=== PATIENT | female | born 1970 | race Caucasian/White ===

== ENCOUNTER → 2020-06-19 09:30 | Outpatient (CLI) | payer OTHER, SELFPAY ==
--- NOTE | ~2020-06-19 | MM_ITS ---
EXAMINATION: MM screening [facility] BI w zane HISTORY: Screening mammogram TECHNIQUE: Craniocaudal and mediolateral oblique 3-D tomosynthesis images were obtained and synthetic 2-D images were generated. CAD analysis was submitted and interpreted. COMPARISON: 01/17/2019, 01/01/2018 BREAST PARENCHYMAL COMPOSITION: There are scattered areas of fibroglandular density. FINDINGS: There is no evidence of suspicious mass, calcification, or architectural distortion to sugg est malignancy in either breast. There has been no suspicious interval change. IMPRESSION: 1. No mammographic evidence of malignancy. 2. Recommend routine screening mammography in one year. BI-RADS Category 1: Negative Reviewed, dictated and finalized at location A.
== END ==
PROVIDERS: PCP Emergency Medicine; Visit Provider Obstetrics & Gynecology
DX: Z12.31 Encounter for screening mammogram for malignant neoplasm of breast (principal)
CPT/HCPCS: 77063; 77067

== ENCOUNTER → 2021-06-14 12:29 | Outpatient (CLI) | payer OTHER, SELFPAY ==
--- NOTE | ~2021-06-14 | MR_ITS ---
EXAMINATION: MR foot LT wo con DATE: 06/14/2021 13:16 INDICATION: Spontaneous rupture of the flexor tendon of the left foot with medial left hindfoot pain and swelling TECHNIQUE: Magnetic resonance imaging (MRI) of the left ankle was performed without intravenous contr ast. Sequences included sagittal, coronal, and axial proton-density weighted fast spin echo without a nd with fat saturation. COMPARISON: None. FINDINGS: Medial ankle ligaments: Loss of the normally sharply defined striated pattern of the deep deltoid ligament with small heterot opic ossicle along the ligament fibers consistent with sequela of chronic sprain. There is prominent thickening of the superficial deltoid ligament as well as of the superomedial component of the spring ligament complex consistent with additional scarring related to chronic sprain. Lateral ankle ligaments: The anterior and posterior inferior tibiofibular ligaments are normal. The anterior talofibular, calc aneofibular and posterior talofibular ligaments are normal. Tendons: Achilles tendon is normal. The peroneus longus and brevis tendons are normal. The tibialis anterior a nd extensor hallucis longus and extensor digitorum longus tendons are normal. The flexor digitorum lo ngus and flexor hallucis longus tendons are normal. Severe tibialis posterior tendinopathy with mild surrounding tenosynovitis. There is a longitudinal split tearing of the tendon as well as a high-grad e partial if not complete tear of the tendon. Approximately two thirds of the cross-sectional area of the tendon appears torn near the level of the tibiotalar joint line. Following the intact portion of the tendon more proximally however suggests this may also be torn proximally 1.5 cm proximal to the level of the joint line. Plantar fascia: Chronic mild plantar enthesopathy with mild thickening of the proximal central component of the plant ar aponeurosis and small enthesophyte at its calcaneal origin. No surrounding soft tissue or marrow e rey to suggest acute plantar fasciitis. Bones/other: Bone alignment is normal. Normal marrow signal with no fracture or pathologic marrow replacing proces s. Polyarticular osteoarthritis, mild to moderate at the talonavicular joint and mild at the ankle an d remaining joints in the mid and hindfoot. Fluid: Physiologic amount fluid in the joint spaces. There is moderate-sized ganglion cyst measuring up to 5 mm in thickness and extending 2.8 cm anteroposteriorly and 2.7 cm medial collateral along the dorsol ateral aspect of the talonavicular joint. IMPRESSION: 1. Mild tibialis tenosynovitis with severe tendinopathy, longitudinal split tearing and high-grade pa rtial if not complete transverse tear of the tibialis posterior tendon near the level of the tibiotal ar joint line. 2. Prominent likely chronic scarring of the deep and superficial deltoid ligaments and superomedial c omponent of the spring ligament complex cyst with sequela of chronic sprain. 3. 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 4. Moderate-sized ganglion cyst along the dorsal aspect of the talonavicular joint. Reviewed, dictated and finalized at location A. IMPRESSION: 1. Mild tibialis tenosynovitis with severe tendinopathy, longitudinal split tea ring and high-grade partial if not complete transverse tear of the tibialis pos terior tendon near the level of the tibiotalar joint line. 2. Prominent likely chronic scarring of the deep and superficial deltoid ligame nts and superomedial component of the spring ligament complex cyst with sequela of chronic sprain. 3. Polyarticular osteoarthritis at the left ankle, mid and hindfoot, mild
== END ==
PROVIDERS: Visit Provider Podiatrist Foot & Ankle Surgery
DX: M66.372 Spontaneous rupture of flexor tendons, left ankle and foot (principal); M19.072 Primary osteoarthritis, left ankle and foot
CPT/HCPCS: 73718

== ENCOUNTER → 2022-07-24 16:31 | Outpatient (CLI) | payer OTHER, MEDICAID, SELFPAY ==
--- NOTE | ~2022-07-24 | MM_ITS ---
EXAMINATION: MM screening [facility] BI w zane HISTORY: Screening mammogram TECHNIQUE: Craniocaudal and mediolateral oblique 3-D tomosynthesis images were obtained and synthetic 2-D images were generated. CAD analysis was submitted and interpreted. COMPARISON: 06/19/2020, 01/17/2019, 01/01/2018 bilateral screening mammogram examinations BREAST PARENCHYMAL COMPOSITION: The breasts are almost entirely fatty. FINDINGS: There is no evidence of suspicious mass, calcification, or architectural distortion to sugg est malignancy in either breast. There has been no suspicious interval change. IMPRESSION: 1. No mammographic evidence of malignancy. 2. Recommend routine screening mammography in one year. BI-RADS Category 1: Negative Reviewed, dictated and finalized at location A.
== END ==
PROVIDERS: PCP Student in an Organized Health Care Education/Training Program; Visit Provider Obstetrics & Gynecology
DX: Z12.31 Encounter for screening mammogram for malignant neoplasm of breast (principal)
CPT/HCPCS: 77063; 77067

== ENCOUNTER 2024-08-14 12:03 | Outpatient (CLI) | payer OTHER, SELFPAY ==
--- NOTE | ~2024-08-14 | MM_ITS ---
EXAMINATION: MM screening [facility] BI w zane HISTORY: Screening TECHNIQUE: Craniocaudal and mediolateral oblique 3-D tomosynthesis images were obtained and synthetic 2-D images were generated. CAD analysis was submitted and interpreted. COMPARISON: Comparison to multiple prior studies sequentially, with oldest reviewed study dated 03/02. BREAST PARENCHYMAL COMPOSITION: Not Dense: The breasts are almost entirely fatty. FINDINGS: There is no evidence of suspicious mass, calcification, or architectural distortion to sugg est malignancy in either breast. There has been no suspicious interval change. IMPRESSION: 1. No mammographic evidence of malignancy. 2. Recommend routine screening mammography in one year. BI-RADS Category 1: Negative Reviewed, dictated and finalized at location A.
== END 2024-08-14 12:04 | disposition home or self-care (01) ==
LOC: MICIMG 12:04
PROVIDERS: PCP Student in an Organized Health Care Education/Training Program; Visit Provider Obstetrics & Gynecology
DX: Z12.31 Encounter for screening mammogram for malignant neoplasm of breast (principal)
CPT/HCPCS: 77063; 77067

== ENCOUNTER 2024-11-14 16:34 | Emergency (ER) | payer OTHER, SELFPAY ==
--- OUTSIDE RECORDS SUMMARY | 2024-11-14 16:36 | XMS_ITS | Clinical Summary ---
Author Organization [facility] Address [facility] [place] [address] Care Team Providers Care Conservation Biology Professor Name Role Phone Giselle Landaverde MD Primary Care Provider [phone] Allergies Active Allergy Reactions Criticality Noted Date Comments Erythromycin Diarrhea Low 12/17/2009 Latex Itching Medium 07/15/2014 Penicillins Diarrhea Medium 07/15/2014 Medications metFORMIN 1000 MG tablet Take 1 tablet (1,000 mg total) by mouth 2 (two) times daily. 0 9 Active cetirizine 10 MG chewable tablet Chew 1 tablet (10 mg total) by mouth daily. Active Dapagliflozin Propanediol 10 MG Tab Take 1 tablet (10 mg total) by mouth daily. 2 Active Apple Cider Vinegar 188 MG Cap Active clotrimazole-beta methasone (LOTRISONE) cream APPLY TO THE AFFECTED AREA THREE TIMES DAILY 3 Active losartan (COZAAR) 100 MG tabletIndications :Essential hypertension Take 1 tablet (100 mg total) by mouth daily. 90 tablet 1 5 Active OZEMPIC 2 mg/dose injection (PEN) Inject 2 mg into the skin once a week. Active hydroCHLOROthiazi de (MICROZIDE) 12.5 MG tabletIndications :Essential hypertension Take 2 tablets (25 mg total) by mouth daily. 180 tablet 5 Active cyclobenzaprine (FLEXERIL) 5 MG tabletIndications :Spasm of thoracic back muscle,Acute left-sided thoracic back pain Take 1 tablet (5 mg total) by mouth 2 (two) times daily as needed for Muscle Spasms. 10 tablet 5 11/11/19 25 Active Problems Problem Noted Date Diagnosed Date Microalbuminuria 2020 Overview (10/18/2020): Last Assessment & Plan: Probably related to insulin resistance / prediabetes On Losartan Insulin resistance syndrome 2020 Overview (04/26/2021): Last Assessment & Plan: Hba1c 6.5 today Diet and exercise Continue Farxiga, Metformin Last Assessment & Plan: Continue working on diet and exercise Continue with Farxiga and Metformin Vitamin D insufficiency 10/17/2017 PCOS (polycystic ovarian syndrome) 06/21/2017 Overview (09/25/2018): Last Assessment & Plan: A1c 6.7. Continue metformin. Focus on diet and exercise. Iron deficiency anemia 07/10/2016 Microcytic anemia 07/06/2016 Orthopnea 06/30/2016 Daytime hypersomnolence 06/26/2016 Medication management 06/26/2016 Assessment & Plan (06/25/2018 6:14 PM CDT): Recheck routine labs in 6 months. Hernia, abdominal 07/15/2014 Essential hypertension 07/15/2014 Assessment & Plan (06/25/2018 6:06 PM CDT): Borderline controlled. 1) Medication: continue current medication regimen unchanged, encouraged home monitoring, call for persistent elevations at or above 130/85. 2) Dietary sodium restriction - DASH diet handout 3) Regular aerobic exercise 4) Recheck in 6 months, sooner should new symptoms or problems arise. Pure hypertriglyceridemia 08/16/2013 Overview (06/21/2018): Overview: PURE HYPERGLYCERIDEMIA Assessment & Plan (06/25/2018 6:13 PM CDT): Check lipid panel, last remote, but elevated per patient. Morbid obesity with BMI of 50.0-59.9, adult 09/30 Overview (06/21/2018): Overview: MORBID OBESITY Last Assessment & Plan: Diet and exercise were discussed. 1200 Calorie diet advised 45-60 min aerobic / resistance exercise most days of the week recommended. 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 Will treat with azithromycin and codeine containing cough syrup. Type 2 diabetes mellitus wit hout complication, without long-term current use of insulin ([facility]) 06/25/2018 11/11/2021 Assessment & Plan (06/25/2018 6:16 PM CDT): Hemoglobin A1c indicates patient now with diabetes. Continue current treatment. Recheck in 6 months. Acute bronchitis, unspecified organism 06/25/2018 09/25/2018 Assessment & Plan (06/25/2018 6:24 PM CDT): See upper respiratory tract infection, above. Plantar wart 10/17/2017 10/05/2019 Skin lesion of neck 04/04/2017 12/25/19 19 BMI 50.0-59.9, adult 06/26/2016 021 Overview (06/21/2018): Transitioned From: Obesity Assessment & Plan (06/25/2018 6:10 PM CDT): Patient continues to work toward weight loss, with dietary changes and increased exercise. Briefly reviewed considerations for bariatric surgery. Patient concerned as a number of people she knows who had gained their weight back and some had ongoing gastrointestinal issues. Continue to monitor and encourage positive steps with lifestyle change. Encounters Date Type Department Care Team Description 11/14/2024 Telephone [facility] Family & Internal [address] [phone] Giselle Landaverde MD Appointment Request 10/31/2024 11:00 AM CDT Office Visit [facility] Family Internal [address] [phone] Hai Garcia PA Back Pain (Mid back pain (dull and sometimes sharp stabbing) started Sunday /Took naproxen and ibuprofen not helping) 10/31/2024 Travel 09/25/2024 1:00 PM CDT Office Visit [facility] Internal [address] [phone] Per Mercedes MD Physical 09/25/2024 Travel 09/15/2024 Orders Only [facility] Internal [address] [phone] Kimberly Bowens from Last 3 Months Immunizations Immunization Administration Dates Next Due Dtap (Generic) 01/02/2019 Influenza (Generic) 12/23/2009,12/23/2009 Tdap (Generic) 01/02/2019,01/02/2019,01/01/2019 Family History Medical History Relation Comments Cancer Mother Diabetes Mother Hypertension Mother Relation Status Comments Father Mother Alive Social History Tobacco Use Types Packs/Day Years Used Date Smoking Tobacco: Never Smokeless Tobacco: Never Tobacco Cessation:Counseling Given: No Alcohol Use Standard Drinks/Week Comments Yes 0 (1 standard drink = 0.6 oz pur e alcohol) socailly once a month AUDIT-C Answer Date Recorded Frequency of Alcohol Consumption Never 06/21/2018 Average Number of Drinks Not on file 019 Frequency of Binge Drinking Not on file 06/01 PHQ-2 Answer Date Recorded Patient Health Questionnaire-2 Score 0 09/25/2024 Comments No Sex and Gender Information Value Date Recorded Sex Assigned at Female 11/03/2024 7:11 AM CDT Legal Sex Female 8:18 PM CDT Gender Identity Not on file Sexual Orientation Not on file Last Filed Vital Signs Vital Sign Reading Time Taken Comments Blood Pressure 138/80 10/31/2024 11:10 AM CDT manual Pulse 64 10/31/2024 11:04 AM CDT Temperature 36.4 C (97.6 F) 10/31/2024 11:04 AM CDT Respiratory Rate 20 10/31/2024 11:0 4 AM CDT Oxygen Saturation 97% 10/31/2024 11: 04 AM CDT Inhaled Oxygen Concentration - - Weight 137.5 kg (303 lb 3.2 oz) 025 11:04 AM CDT Height 167.6 cm (5' 6) 10/31/2024 11:0 4 AM CDT Body Mass Index 48.94 10/31/2024 11:04 AM CDT Plan of Treatment Upcoming Encounters Date Type Department Care Team (Late st Contact Info) Description 01/30/2025 4:00 PM CDT Office Visit [facility] Family & Internal Medicine - [address] [phone] Gsielle Landaverde [place] [id number] [place] [address]. [address] [place] [address] Health Maintenance Due Date Last Done Comments Cervical Cancer Screening Pap Smear (Age 30 to 64) Every 3 Years 1971 Hepatitis C 1989 Hepatitis B Vaccines (1 of 3 - 19+ 3-dose series) 1990 Cervical Cancer Screening Pap with HPV Testing (Age 30 to 64) Every 5 Years 2001 Pneumococcal Vaccine: 50+ Years (1 of 1 - PCV) 2021 Zoster Vaccines (1 of 2) 2021 COVID-19 Vaccine (1 - 2023- season) 2025 Postponed from 12/02/2023 (Patient Refused) Annual Physical 09/25/2025 09/25/2024, 04/26/2021 Colorectal Cancer Screening FIT-DNA (3 Years) 10/09/2026 10/10/2023, 10/10/2023 Mammogram Screening 09/06/2028 06/19/2020 Postpone d from 08/01/2023 (Going to Outside Clinic) DTaP, Tdap and Td Vaccines (5 - Td or Tdap) 01/02/2029 01/02/2019, 01/02/2019, 01/02/2019, Additional history exists Cervical Cancer Screening with HPV 08/28/2030 Postponed from 2001 (Going to Outside Clinic) PHQ-2 (Physician [place]) Completed 09/25/2024 Meningococcal B Vaccine Aged Out No l onger eligible based on patient's age to complete this topic Meningococcal Vaccine Aged Out No kushal rachel eligible based on patient's age to complete this topic RSV Immunizations Under 20 Months Aged Out No longer eligible based on patient's age to complete this topic Procedures Procedure Name Priority Date/Time Associated Diagnosis Comments COLOGUARD (EXACT SCIENCE) Routine 10/10/2023 4:00 PM CDT Colon cancer screening MAMMOGRAM GENERIC (SCAN ORDER) 06/19/2020 from Last 3 Months or Most Recently Relevant to Health Maintenance Results * COLOGUARD (EXACT SCIENCE) (10/10/2023 4:00 PM CDT) COLOGUARD RESULT Negative Negative [employer] [facility] (CLIA #:[id number]) Comment: NEGATIVE TEST RESULT. A negative Cologuard result indicates a low likelihood that a colorectal cancer (CRC) or advanced adenoma (adenomatous polyps with more advanced pre-malignant features) is present. The chance that a person with a negative Cologuard test has a colorectal cancer is less than 1 in 1500 (negative predictive value >99.9%) or has an advanced adenoma is less than 5.3% (negative predictive value 94.7%). These data are based on a prospective cross-sectional study of 10,000 individuals at average risk for colorectal cancer who were screened with both Cologuard and colonoscopy. (Kayleen Vaughn al, N Engl J Med 2014;370(14):2185-9063) The normal value (reference range) for this assay is negative. COLOGUARD RE-SCREENING RECOMMENDATION: Periodic colorectal cancer screening is an important part of preventive healthcare for asymptomatic individuals at average risk for colorectal cancer. Following a negative Cologuard result, the [place] [employer] and U.S. Multi-Society Task Force screening guidelines recommend a Cologuard re-screening interval of 3 years. References: [place] [employer] Guideline for Colorectal Cancer Screening: https://www.cancer.org/cancer/sircp-czrmvd-aszvoi/ptuojrhoa-wqglxpewb-lpdpivl/ac s-rec ommendations.html.; Marko DK, Leda THOMAS, Vidhi LOPEZ, Colorectal Cancer Screening: Recommendations for Physicians and Patients from the U.S. Multi-Society Task Force on Colorectal Cancer Screening , Am J Gastroenterology 2017; 112:7234-3709. TEST DESCRIPTION: Composite algorithmic analysis of stool DNA-biomarkers with hemoglobin immunoassay. Quantitative values of individual biomarkers are not reportable and are not associated with individual biomarker result reference ranges. Cologuard is intended for colorectal cancer screening of adults of either sex, 45 years or older, who are at average-risk for colorectal cancer (CRC). Cologuard has been approved for use by the U.S. FDA. The performance of Cologuard was established in a cross sectional study of average-risk adults aged 50-84. Cologuard performance in patients ages 45 to 49 years was estimated by sub-group analysis of near-age groups. Colonoscopies performed for a positive result may find as the most clinically significant lesion: colorectal cancer [4.0%], advanced adenoma (including sessile serrated polyps greater than or equal to 1cm diameter) [20%] or non- advanced adenoma [31%]; or no colorectal neoplasia [45%]. These estimates are derived from a prospective cross-sectional screening study of 10,000 individuals at average risk for colorectal cancer who were screened with both Cologuard and colonoscopy. (Kayleen Vaughn al, N Engl J Med 2014;370(14):9977-8191.) Cologuard may produce a false negative or false positive result (no colorectal cancer or precancerous polyp present at colonoscopy follow up). A negative Cologuard test result does not guarantee the absence of CRC or advanced adenoma (pre-cancer). The current Cologuard screening interval is every 3 years. ([place] [employer] Society and U.S. Multi-Society Task Force). Cologuard performance data in a 10,000 patient pivotal study using colonoscopy as the reference method can be accessed at the following location: www.exactlabs.com/results. Additional description of the Cologuard test process, warnings and precautions can be found at www.cologuard.com. STOOL STOOL SPECIMEN / Unknown 10/10/2023 4:00 PM CDT 10/11/2023 9:42 AM CDT Giselle Landaverde MD BODY FLUIDS AND STOOLS ORDERAB LES Final Result [facility] ([employer] [address] [facility]) [address] [place] [address], [employer] (CLIA #:[id number]) [address] [place] [address] * MAMMOGRAM GENERIC (06/19/2020) Anatomical Region Laterality Modality Other 06/19/2020 Narrative 06/19/2020 Ordered by an unspecified provider. us Documents Scanned SCANNING Final Result from Last 3 Months or Most Recently Relevant to Health Maintenance [place] [address] [facility] Care Teams Conservation Biology Professor Relationship Specialty Start [place] [address] [place] [address] PCP - General FAMILY PRACTICE 08/23/21
--- OUTSIDE RECORDS SUMMARY | 2024-11-14 16:36 | XMS_ITS | Clinical Summary ---
Author Organization [facility] [employer] Address [address] [place] [address] Care Team Providers Care Cloth Shrinking Machine Operator Name Role Phone Unavailable Primary Care Provider Unavailabl e Source Comments [facility] [employer],non-owned Affiliates and Associated Physician Practices is amultiple site organization consisting of ambulatory clinics and hospital sitesin [place], [place]. This disclosure is being madepursuant to the Care Everywhere program and may not contain all information available regarding this patient. Last updated 17.[facility] [employer] Allergies Active Allergy Reactions Criticality Noted Date Comments Erythromycin Diarrhea 12/17/2009 Latex Itching 12/17/2009 Medications * Be aware that medications may not be up to date on this document. Alwaysverify current medications with the patient. metformin CR osmotic 24hr (FORTAMET) 1000 MG (OSM) tablet Take 1,000 mg by mouth 2 times daily. 0 Active valsartan-hydro chlorothiazide (DIOVAN HCT) 320-12.5 MG tablet Take 1 Tab by mouth daily. Instructed to take AM of surgery Active trazodone (DESYREL) 50 MG tablet Take 25 mg by mouth at bedtime. Active citalopram (CELEXA) 10 MG tablet Take 10 mg by mouth daily. Active Cholecalciferol (VITAMIN D) 1000 UNIT capsule Take 1,000 Units by mouth daily. Active vitamin B-12 (CYANOCOBALAMIN ) 1000 MCG tablet Take 1,000 mcg by mouth daily. Active hydrocodone-paola taminophen (NORCO) 5-325 MG tablet Take 1 Tab by mouth every 4 hours as needed for Pain. 30 Tab 0 0 Active cephALEXin (KEFLEX) 500 MG capsule Take 500 mg by mouth 4 times daily. Active Active Problems No known active problems Immunizations Immunization Administration Dates Next Due INFLUENZA VACCINE 12/23/2009 Social History Tobacco Use Types Packs/Day Years Used Date Smoking Tobacco: Former Cigarettes Q uit: 04/02/2003 Comments:social only Alcohol Use Standard Drinks/Week Comments No 0 (1 standard drink = 0.6 oz pur e alcohol) Comments No Sex and Gender Information Value Date Recorded Sex Assigned at Not on file Legal Sex Female 9:08 AM POLE CLASSIFIER Gender Identity Not on file Sexual Orientation Not on file Last Filed Vital Signs Vital Sign Reading Time Taken Comments Blood Pressure 131/57 01/01/2010 2:42 PM CDT Pulse 62 01/01/2010 2:42 PM CDT Temperature 36.8 C (98.2 F) 01/01/2010 2:42 PM CDT Respiratory Rate 18 01/01/2010 2:42 PM CDT Oxygen Saturation 99% 01/01/2010 2:42 PM CDT Inhaled Oxygen Concentration - - Weight 160.6 kg (354 lb) 01/01/2010 2:42 PM CDT Height 177.8 cm (5' 10) 01/01/2010 2:42 PM CDT Body Mass Index 50.79 01/01/2010 2:42 PM CDT Plan of Treatment Health Maintenance Due Date Last Done Comments COLOGUARD (AGES 45-75) - COL ON CA SCREENING 1971 COLON MONITORING 1971 COLONOSCOPY - COLON CA SCREENING 1971 CT COLONOGRAPHY - COLON CA SCREENING 1971 Colorectal Cancer Screening 1971 FIT - COLON CA SCREENING 1971 FLEX SIG - COLON CA SCREENING 1971 LIPID TESTING 1971 MAMMOGRAM 1971 HIV SCREENING 1986 HEPATITIS C SCREENING 05/15/1989 DTAP/TDAP/TD VACCINES (1 - Tdap) 1990 HEPATITIS B VACCINE (1 of 3 - 19+ 3-dose series) 1990 PNEUMOCOCCAL VACCINE 50+ (1 of 1 - PCV) 2021 ZOSTER VACCINE (1 of 2) 2021 COVID-19 VACCINE (1 - 2023-2 5 season) 2023 DEPRESSION SCREENING 04/02/2024 INFLUENZA VACCINE (#1) 2024 12/23/2009 HIB VACCINE Aged Out No longer eligi ble based on patient's age to complete this topic HPV VACCINE Aged Out No longer eligi ble based on patient's age to complete this topic MENINGOCOCCAL (Group B) VACC INE SHARED DECISION-MAKING Aged Out No longer eligibl e based on patient's age to complete this topic MENINGOCOCCAL GROUPS A/C/Y/W VACCINE Aged Out No longer eligible b ased on patient's age to complete this topic Advance Directives * Full Code (Latest Code Status on File) Date Activated Date Inactivated Comments 12/22/2009 4:53 PM 12/27/2009 10:57 PM
--- OUTSIDE RECORDS SUMMARY | 2024-11-14 16:36 | XMS_ITS | Clinical Summary ---
Author Organization [facility] [place] [address] Address [address] [place] [address] Care Team Providers Care Customs House Broker Name Role Phone Giselle Landaverde MD Primary Care Provider [phone] Allergies Active Allergy Reactions Criticality Noted Date Comments Erythromycin Diarrhea Low 12/17/2009 Latex Itching,Unknown Medium 12/17/2009 Penicillins Unknown,Diarrhea Medium 07/15/2014 Medications cetirizine (ZyrTEC) 10 mg tablet Take 1 tablet (10 mg total) by mouth daily Active losartan (COZAAR) 100 mg tablet 8 Active clotrimazole-bet amethasone (LOTRISONE) cream Apply as directed 9 Active UNABLE TO FIND Lipo BC Activ e UNABLE TO FIND Med Name: Nutri Lean Active hydroCHLOROthiaz bunny (HYDRODIURIL) 25 mg tabletIndication s:hypertension Take 1 tablet (25 mg total) by mouth daily Active hydroCHLOROthiaz bunny 12.5 mg tablet 4 Active semaglutide (OZEMPIC) 2 mg/dose (8 mg/3 mL) pen injector injection Inject 2 mg under the skin every 7 days 3 mL 11 5 Active metFORMIN (GLUCOPHAGE) 1,000 mg tabletIndication s:Insulin resistance,PCOS (polycystic ovarian syndrome) Take 1 tablet (1,000 mg total) by mouth 2 (two) times a day with meals 180 tablet 3 5 05/22/19 26 Active dapagliflozin propanediol (Farxiga) 10 mg tabletIndication s:PCOS (polycystic ovarian syndrome) Take 1 tablet (10 mg total) by mouth daily 90 tablet 3 5 Active Active Problems Problem Noted Date Diagnosed Date Insulin resistance 2020 Assessment & Plan (08/21/2023 2:12 PM CDT): See PCOS above. Assessment & Plan (03/01/2023 3:55 PM DIRECTOR OF TESTING): See PCOS above. Assessment & Plan (10/18/2021 3:37 PM CDT): Continue watching diet and exercise Continue Farxiga and Metformin Restart Ozempic, 1 mg weekly Assessment & Plan (06/02/2021 12:50 PM DIRECTOR OF TESTING): Continue working on diet and exercise Continue with Farxiga and Metformin Start Ozempic SE were discussed Assessment & Plan (11/04/2020 12:19 PM CDT): Continue working on diet and exercise Continue with Farxiga and Metformin Assessment & Plan (2020 1:58 PM DIRECTOR OF TESTING): Hba1c 6.5 today Diet and exercise Continue Farxiga, Metformin Microalbuminuria 2020 Assessment & Plan (2020 1:58 PM DIRECTOR OF TESTING): Probably related to insulin resistance / prediabetes On Losartan Insulin resistance syndrome 2020 Overview (05/22/2024): Last Assessment & Plan: Hba1c 6.5 today Diet and exercise Continue Farxiga, Metformin Last Assessment & Plan: Continue working on diet and exercise Continue with Farxiga and Metformin Vitamin D insufficiency 10/17/2017 BMI 50.0-59.9, adult 06/21/2017 Assessment & Plan (2020 1:58 PM DIRECTOR OF TESTING): Diet and exercise were discussed. 1200 Calorie diet advised 45-60 min aerobic / resistance exercise most days of the week recommended. Assessment & Plan (12/03/2019 4:19 PM CDT): Importance of following diet and exercising discussed. Assessment & Plan (09/20/2018 11:46 AM CDT): Encouraged to focus on calorie reduction, go back to exercise. Continue to consider bariatric surgery PCOS (polycystic ovarian syndrome) 06/21/2017 Assessment & Plan (08/21/2023 2:19 PM CDT): Chronic problem. Has been doing well on diet. Plans to start exercise. Current medications: Farxiga 10mg daily Metformin 1000mg twice daily Ozempic 0.5mg weekly Gold standard treatment of PCOS: Diet & exercise. Watch diet. Decrease carbs & sugars. Increase water, lean protein, fruits & vegetables. Strive for regular exercise (30min most days) and diet (get at least 4-5 servings of fruit and veggies daily, avoid processed foods, increase lean protein intake and decrease carb portions as well as fruit juices, regular soda & desserts). Watch carbs and simple sugars. Assessment & Plan (03/01/2023 3:55 PM DIRECTOR OF TESTING): Chronic problem. Reviewed poor diet & lack of exercise program. Mounjaro 2.5mg weekly injection sample given. Has helped her with blood sugars & wt loss in past. If mounjaro is denies she is to check with insurance to see if Ozempic is covered with PCOS/insulin resistance. If that is not covered--see if Zepbound (Mounjaro version for weight loss) or Wegovy (Ozempic version of weight loss) is covered. Send me a message or call to let me know if something else needs to be sent in. Gold standard treatment of PCOS: Diet & exercise. Watch diet. Decrease carbs & sugars. Increase water, lean protein, fruits & vegetables. Stop drinking soda. Strive for regular exercise (30min most days) and diet (get at least 4-5 servings of fruit and veggies daily, avoid processed foods, increase lean protein intake and decrease carb portions as well as fruit juices, regular soda & desserts). Watch carbs and simple sugars. Assessment & Plan (11/04/2020 12:20 PM CDT): Diet and exercise metformin Assessment & Plan (12/03/2019 4:29 PM CDT): A1c 6.2. Continue metformin and Farxiga. Needs to be more focused on diet and exercise Assessment & Plan (04/04/2019 1:15 PM DIRECTOR OF TESTING): A1c is 6.1 indicative of some glycemic issues associated with PCOS and insulin resistance. Can try SGLT2. Farxiga 5 mg. Action and SE reviewed. Assessment & Plan (09/20/2018 11:47 AM CDT): A1c 6.7. Continue metformin. Focus on diet and exercise. Assessment & Plan (06/21/2017 12:36 PM CDT): Diet and exercise Continue metformin PCOS (polycystic ovarian syndrome) 06/21/2017 Overview (05/22/2024): Last Assessment & Plan: A1c 6.7. Continue metformin. Focus on diet and exercise. Iron deficiency anemia 07/10/2016 Microcytic anemia 07/06/2016 Orthopnea 06/30/2016 Daytime hypersomnolence 06/26/2016 Medication management 06/26/2016 Overview (05/22/2024): Last Assessment & Plan: Recheck routine labs in 6 months. Hernia, abdominal 07/15/2014 Essential hypertension 07/15/2014 Overview (05/22/2024): Last Assessment & Plan: Borderline controlled. 1) Medication: continue current medication regimen unchanged, encouraged home monitoring, call for persistent elevations at or above 130/85. 2) Dietary sodium restriction - DASH diet handout 3) Regular aerobic exercise 4) Recheck in 6 months, sooner should new symptoms or problems arise. Pure hyperglyceridemia 08/16/2013 Overview (07/07/2016): PURE HYPERGLYCERIDEMIA Pure hypertriglyceridemia 08/16/2013 Overview (05/22/2024): PURE HYPERGLYCERIDEMIA Last Assessment & Plan: Check lipid panel, last remote, but elevated per patient. Hypertension 10/15/2012 Overview (07/06/2016): HYPERTENSION NOS Assessment & Plan (12/03/2019 4:29 PM CDT): Controlled on current medications. Continue plan. Assessment & Plan (04/04/2019 1:11 PM DIRECTOR OF TESTING): Controlled on current medications. Continue plan. Assessment & Plan (09/20/2018 11:46 AM CDT): Controlled on current medications. Assessment & Plan (06/21/2017 12:36 PM CDT): Goal blood pressure is less than 140/85 Low salt diet recommended Daily aerobic exercise Continue current meds. 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 Assessment & Plan (06/21/2017 12:35 PM CDT): Diet and exercise were discussed. 1200 Calorie diet advised 45-60 min aerobic / resistance exercise most days of the week recommended. Bariatric surgery medically indicated ,pt not interested Restart Phentermine Assessment & Plan (12/08/2016 9:16 AM CDT): Strongly encourage return to daily exercise. Attend bariatric program information session. Concept of insulin resistance and additional CV risk related to weight were reviewed. Immunizations Immunization Administration Dates Next Due DTaP, Unspecified 01/02/2019 Influenza, Unspecified 12/23/2009 Tdap 01/02/2019,01/01/2019 Surgical History Surgery Date Site/Laterality Comments SECTION 2005 section Medical History Medical History Date Comments Hypertension Hypertension Hx Other Medical Claustrophobic; Comments: GFC 10/28/2013 - Insulin resistance Social History Tobacco Use Types Packs/Day Years Used Date Smoking Tobacco: Never Smokeless Tobacco: Never Alcohol Use Standard Drinks/Week Comments Yes 0 (1 standard drink = 0.6 oz pur e alcohol) PHQ-2 Answer Date Recorded PHQ-2 Total Score (If total score is 3 or more points, staff should administer the PHQ-9) 0 2020 Comments Unknown Sex and Gender Information Value Date Recorded Sex Assigned at Not on file Legal Sex Female 6:55 PM DIRECTOR OF TESTING Gender Identity Not on file Sexual Orientation Not on file Obstetrics History Last Filed Vital Signs Vital Sign Reading Time Taken Comments Blood Pressure 106/60 05/22/2024 3:15 PM DIRECTOR OF TESTING Pulse 76 05/22/2024 3:15 PM DIRECTOR OF TESTING Temperature - - Respiratory Rate 18 05/22/2024 3:15 PM DIRECTOR OF TESTING Oxygen Saturation - - Inhaled Oxygen Concentration - - Weight 134.7 kg (297 lb) 05/22/2024 3:15 PM DIRECTOR OF TESTING Height 175.3 cm (5' 9) 05/22/2024 3:15 PM DIRECTOR OF TESTING Body Mass Index 43.86 05/22/2024 3:15 PM DIRECTOR OF TESTING Plan of Treatment Health Maintenance Due Date Last Done Comments Breast Cancer Screening-Mammogram 1971 Cervical Cancer Screening 1971 Colon Cancer Screening-Colonoscopy 1971 Hepatitis C Screening 1971 Hepatitis B Screening 1989 Regular Well Visit/Exam 18-64 1989 Depression Screening 2021 2020, 06/21/2017, 12/07/2016 Zoster Vaccine (1 of 2) 2021 Influenza Vaccine (#1) 2024 12/23/2009 DTaP/Tdap/Td Vaccine (4 - Td or Tdap) 01/02/2029 01/02/2019, 01/02/2019, 01/01/2019 Pneumococcal vaccine <65 Aged Out No longer eligible based on patient's age to complete this topic Insurance [employer] OPEN ACCESS [employer] OPEN ACCESS [facility] Care Teams Customs House Broker Relationship Specialty Start [place] [id number] [place] [address] PCP - General Family Medicine 11/13/22
--- OUTSIDE RECORDS SUMMARY | 2024-11-14 16:36 | XMS_ITS | Encounter Summary ---
Author Organization [facility] Address [address] [place] [id number] Care Team Providers Care Coal Screener Name Role Phone Giselle Landaverde MD Primary Care Provider [phone] Reason for Visit * Reason Onset Date Comments Appointment Request 11/14/2024 Encounter Details Date Type Department Care Team (Late st Contact Info) Description 11/14/2024 Telephone [facility] Family & Internal Medicine [facility] [address] [place] [address] [place] [id number] [facility] [place] [address] Appointment Request Social History Tobacco Use Types Packs/Day Years [...] on file Sexual Orientation Not on file documented as of this encounter Progress Notes * Abbie José MA - 11/14/2024 2:05 PM CDT Returned a call back to pt's Kavon. Informed him that Dr. Landaverde stated she can get pt in tosee her at 2:40 but no later due to schedule. Kavon said that time will not work due to pt having started a new job and can not take off at that time. Informed him that pt could utilize the ER if she is in that much pain. Kavon then asked if [facility] was open and if they were low on staff as well. Told him I wasn't sure but he could call them and ask. Kavon v/u and said thank you. No further questions at this time. * Antonia Mast - 11/14/2024 1:06 PM CDT Kavon smith states that pt has been trying to get into the walk in for the past two days for back pain, but it has been closed each time. Her is asking if Dr Landaverde could squeeze her in later today after 3:30? # [phone] documented in this encounter Plan of Treatment Upcoming Encounters Date Type Department Care Team (Late st Contact Info) Description 01/30/2025 4:00 PM CDT Office Visit [facility] Family & Internal Medicine [address] [address] Giselle Landaverde MD [address] [place] [address]. [address] [place] [address] documented as of this encounter Visit Diagnoses Not on filedocumented in this encounter Additional Health Concerns Assessment Noted Time PHQ-9 Depression Total Score: 1 09/28/19 23 11:09 AM CDT documented as of this encounter Care Teams Coal Screener Relationship Specialty Start Date End Date Giselle Landaverde MD [address] [place] [address]. [address] [place] [address] PCP - General FAMILY PRACTICE 08/23/21 documented as of this encounter
[2024-11-14 16:48] VITALS: BP 128/77; PULSE 77; RESP 16; TEMP 36.5; O2SAT 98
--- NOTE | 2024-11-14 17:01 | ED.BACK ---
HPI - Back Pain/Injury General Chief Complaint: Back Pain/Injury Stated Complaint: back pain Time Seen by Provider: 11/14/24 17:02 Source: patient Mode of arrival: ambulatory Limitations: no limitations History of Present Illness HPI Narrative: 54 y/o female presented for c/o left upper back pain. Onset 4 days. Denies injury. Pain is worse with certain movements. Says she has had this in the past, most recently about 3 months ago. (Per RX notes she had cyclobenzaprine rx filled 10/31/24.) Says this pain has happened when she lifts something heavy, sits in hard chairs, or travels. Using ice and heat, Tens, and tiger balm. Denies cough, shortness of breath, urinary complaints, nausea, vomiting, fevers or chills. Denies pain radiating into the hips or legs, numbness, tingling, weakness of the lower extremities, or change in gait, saddle paresthesia or loss of bowel or bladder. Related Data Home Medications ?Medication ?Instructions ?Recorded ?Confirmed ?Last Taken ?Type dapagliflozin propanediol 10 mg mg 11/14/24 Unknown History tablet (Farxiga) hydrochlorothiazide 12.5 mg tablet mg 11/14/24 Unknown History losartan 100 mg tablet mg 11/14/24 Unknown History metformin 1,000 mg tablet mg 11/14/24 Unknown History semaglutide 1 mg/dose (4 mg/3 mL) mg subcut 11/14/24 Unknown History subcutaneous pen injector (Ozempic) semaglutide 2 mg/dose (8 mg/3 mL) mg subcut 11/14/24 Unknown History subcutaneous pen injector (Ozempic) Allergies Allergy/AdvReac Type Severity Reaction Status Date / Time adhesive Allergy Severe RED RASH Verified 07/15/08 15:59 erythromycin base Allergy Unknown Diarrhea Unverified 07/15/08 15:59 latex Allergy Unknown Verified 07/15/08 15:59 Review of Systems Review of Systems: CONSTITUTIONAL: Denies body aches, fever, chills EYES: Denies visual changes CARDIOVASCULAR: Denies chest pain, palpitations, or edema. RESPIRATORY: Denies cough or dyspnea. GASTROINTESTINAL: Denies abdominal pain, nausea, vomiting, or diarrhea. SKIN: Denies rash, itching, or wounds. MUSCULOSKELETAL: reports back pain NEUROLOGIC: Denies headache, numbness, tingling, or weakness. All systems reviewed & are unremarkable except as noted in HPI and below PMFSH Comments At time of signature, I have reviewed and agree with nursing past medical, surgical, social and family history unless otherwise noted. Please see nursing chart for further information. There is no relevant family history pertinent to the presenting complaint Exam Narrative: GENERAL: Well-appearing EYES: conjunctivae clear NECK: Supple. full ROM CHEST: Speaks in full sentences. No respiratory distress. HEART: Regular rate and rhythm. Normal and equal peripheral pulses. MUSC: No Vertebral point tenderness. BLEs with normal strength and sensation, normal range of motion. endorses pain with certain movement but No point tenderness to left back. No ecchymosis or rash, open wounds. pulse palpable and equal bilaterally, skin warm, dry, pink. Capillary refill less than 3 seconds. Gait steady. SKIN: Warm, dry, no rash. NEURO: Alert and oriented x3. Course Course Emergency Course: Patient is aware of diagnosis, understands and agrees to treatment plan. Anticipatory guidance given. Patient agrees to follow-up as directed and is aware of reasons to seek care at the emergency department. Portions of this record may have been created with voice recognition software Level of Care: Express Care Visit Vital Signs Vital signs: Vital Signs Temperature 97.7 F 11/14/24 16:48 Pulse Rate 77 11/14/24 16:48 Respiratory Rate 16 11/14/24 16:48 Blood Pressure 128/77 11/14/24 16:48 Pulse Oximetry 98 11/14/24 16:48 Oxygen Delivery Room Air 11/14/24 16:48 Temperature 97.7 F 11/14/24 16:48 Pulse Rate 77 11/14/24 16:48 Respiratory Rate 16 11/14/24 16:48 Blood Pressure 128/77 11/14/24 16:48 Pulse Oximetry 98 11/14/24 16:48 Oxygen Delivery Room Air 11/14/24 16:48 Reviewed MDM - Back Pain/Injury MDM Narrative Medical decision making narrative: Discussed physical exam findings and reviewed prescriptions Advised supportive measures and s/s to go to the ER. Pt is stable and appropriate for outpt treatment and follow up with pcp. Differential Diagnosis Differential diagnosis: Likely lumbar radiculopathy, sciatica, strain of lumbar region, renal colic, pyelonephritis and discitis Discharge Plan Discharge Clinical Impression: Acute left-sided back pain Patient Disposition: Home Condition: Stable Instructions: Antibiotic Form, Back Pain (ED) Additional Instructions: Please follow up with your Primary Care Doctor. - call for an appointment. Avoid lifting. pushing. pulling, or anything that worsens the pain. Walking and other gentle exercising several times a week has been shown to improve back pain; bed rest is not recommended. Tylenol 1000mg every 8 hours Take muscle relaxers every 8 hours as needed for muscle spasm- do not drive or make any important decisions while on this medication for it can make you drowsy. Take steroid as directed Over the counter pain cream like icy/hot or biofreeze, or Salon pas/lidocaine 4% patch. You may apply heat or cold to the area as needed. Go to the ER immediately If you experience any worsening pain, swelling, numbness, weakness, problems with bladder or bowel function, weakness or loss of feeling in one or both of your legs, or any other serious concerns. Patient Language: Italian Prescriptions: New cyclobenzaprine 10 mg tablet 10 mg PO TID PRN (Reason: muscle spasm) Qty: 10 0RF prednisone 20 mg tablet 20 mg PO DAILY Qty: 18 0RF Rx Instructions: take 3 tablets daily for 3 days, then 2 tablets daily for 3 days then 1 tablet daily for 3 days No Action metformin 1,000 mg tablet losartan 100 mg tablet hydrochlorothiazide 12.5 mg tablet dapagliflozin propanediol [Farxiga] 10 mg tablet Ozempic 1 mg/dose (4 mg/3 mL) pen injector SUBCUT Ozempic 2 mg/dose (8 mg/3 mL) pen injector SUBCUT Follow-up/Referrals: Jozef,MD Giselle [Primary Care Provider] - Time of Disposition: 17:17
== END 2024-11-14 17:24 | disposition home or self-care (01) ==
PROVIDERS: Emergency Provider Nurse Practitioner Family; PCP Family Medicine
DX: M54.6 Pain in thoracic spine (principal); E28.2 Polycystic ovarian syndrome
CPT/HCPCS: 99213; G0463